=== PATIENT | female | born 1985 | race Caucasian/White ===

== ENCOUNTER 2022-03-19 12:01 | Emergency (ER) | payer OTHER ==
[~2022-03-19] VITALS: Ht 172.7 cm; Wt 99.8 kg
[2022-03-19] MEDS ORDERED: PROBIOTIC1 EAC2 PO (18:48)
[2022-03-19] MEDS ORDERED: PEPCID AC20 MG PO (18:48)
[2022-03-19] MEDS ORDERED: CIPRO500 MG PO (18:48)
== END 2022-03-19 19:04 | disposition home or self-care (01) ==
LOC: ER 12:01
DX: B34.9 Viral infection, unspecified (principal); R19.7 Diarrhea, unspecified; Z20.822 Contact with and (suspected) exposure to COVID-19